=== PATIENT | female | born 1960 | race Caucasian/White ===

== ENCOUNTER 2016-11-15 18:42 | Emergency (ER) | payer SELFPAY ==
[~2016-11-15 18:42] MED LIST: ABILIFY2 PO; ASAB PO; ATARAX50B PO; IBU800 PO; LIOR10 PO; NEUR600 PO; PRILO PO; PROAIR HFA INH; PROZAC40 MG PO; REMERON45 MG PO; ZOCOR10 PO
[2016-11-15 19:18] LABS: BASOPHILS 0.3 %; BASOPHILS ABSOLUTE 0.03 10/3/uL (0.0-0.16); EOSINOPHILS 1.3 %; EOSINOPHILS ABSOLUTE 0.14 10/3/uL (0.0-0.53); HEMOGLOBIN 12.3 g/dL (12.0-16.0); IMMATURE GRANULOCYTES 0.3 %; IMMATURE GRANULOCYTES ABSOLUTE 0.03 10/3/uL (0.0-0.11); LYMPHOCYTES 11.2 %; LYMPHOCYTES ABSOLUTE 1.19 10/3/uL (0.67-4.30); MEAN CORPUS HGB CONC 34.3 g/dL (32.0-36.0); MEAN CORPUSCULAR HEMOGLOB 29.2 pg (26.0-34.0); MEAN PLATELET VOLUME 9.7 fL (9.2-13.0); MONOCYTES 7.5 %; NEUTROPHILS 79.4 %; NEUTROPHILS ABSOLUTE 8.46 10/3/uL (2.02-8.40); PLATELET COUNT 281 10/3/uL (150-400); RED CELL COUNT 4.21 10/6/uL (4.0-5.6)
[2016-11-15 19:20] LABS: HEMATOCRIT 35.9 % (36.0-48.0); MANUAL DIFF NO %; MEAN CORPUSCULAR VOLUME 85.3 fL (80-100); WHITE BLOOD CELLS 10.7 10/3/uL (4.5-10.5)
[2016-11-15 19:36] LABS: A/G RATIO 0.8 (0.7-1.9); ALBUMIN 3.6 G/DL (3.5-5.0); ALKALINE PHOSPHATASE 121 U/L (45-117); BUN (BLOOD UREA NITROGEN) 5 MG/DL (6-23); CHLORIDE, SERUM 102 MMOL/L (96-112); CO2 (CARBON DIOXIDE) 26 MMOL/L (24-34); CREATININE 0.79 MG/DL (0.55-1.02); GFR AFRICAN AMERICAN 98 ML/MIN (>=60); GFR NON AFRICAN AMERICAN 84 ML/MIN (>=60); GLOBULIN 4.3 G/DL (2.5-4.1); GLUCOSE, SERUM 100 MG/DL (60-99); POTASSIUM, SERUM 3.3 MMOL/L (3.5-5.3); SGOT(AST) 20 U/L (5-40); SGPT(ALT) 20 U/L (5-65); SODIUM, SERUM 136 MMOL/L (135-148); TOTAL BILIRUBIN 0.4 MG/DL (0-1.2); TOTAL PROTEIN 7.9 G/DL (6.0-8.5)
== END 2016-11-15 22:30 | disposition home or self-care (01) ==
LOC: ER 18:42
PROVIDERS: Emergency Medicine
DX: J20.9 Acute bronchitis, unspecified (principal); J42 Unspecified chronic bronchitis; F17.200 Nicotine dependence, unspecified, uncomplicated; E87.6 Hypokalemia; K21.9 Gastro-esophageal reflux disease without esophagitis; J45.909 Unspecified asthma, uncomplicated; Z88.8 Allergy status to other drugs, medicaments and biological substances; Z79.82 Long term (current) use of aspirin; Z79.899 Other long term (current) drug therapy
CPT/HCPCS: 71020; 80053; 85025; 87040; 93005; 94640; 96372; 99285; J2930

== ENCOUNTER 2016-12-01 12:18 | Inpatient (IN) | payer OTHER ==
--- NOTE | ~2016-12-01 | DS ---
Discharge Summary [facility] [address] [place]. [address] NAME: SPRING TRACY : 62 STATUS : DIS IN PAT#: [id number] AGE: 56 ADM/REG DATE : 12/01/16 MR#: [id number] REPORT SERV DATE: 12/08/16 DICTATED BY: NANCY CROWLEY DATE: 12/07/16 REPORT STATUS : Draft TRANSCRIBED BY: ZOHRA DATE: 12/07/16 ADMISSION DATE: 12/01/2016 DISCHARGE DATE: 12/07/2016 DISCHARGE DIAGNOSES: 1. Acute hypoxic respiratory failure. 2. Chronic obstructive pulmonary disease exacerbation. 3. Bipolar disorder. 4. Major depression. DISCHARGE CONDITION: Stable. HISTORY OF PRESENT ILLNESS: For detailed HPI, please make reference to Dr. Sierra Corona's dictation on 12/01/2016. In brief, this is a 56-year-old female with medical history significant for tobacco abuse, early stage of COPD, bipolar disorder, depression, who presented to the hospital with complaints of worsening shortness of breath, cough productive of yellowish sputum, and fevers. In the ER, the patient was noted to have blood pressure of 108/71, oxygen saturation on 4 L of oxygen 94%. PHYSICAL EXAMINATION: Noted for expiratory wheezes. LABORATORY DATA: WBC count of 10.7. CHEST X-RAY: Bibasilar infiltrates. An assessment of pneumonia was made. The patient was admitted to the Hospitalist Service for further management. HOSPITAL COURSE: 1. Acute hypoxic respiratory failure. During the course of this admission, the patient's oxygenation initially got worse requiring up to 6 L of oxygen to maintain saturation around 91%. During the course of this admission, the patient's oxygenation initially got worse. CTA of the chest was done, showed no evidence of PE. However, noted was bilateral pneumonia. The patient continued to receive IV broad-spectrum antibiotics. The patient's oxygenation requirement continued to improve with antibiotics treatment. The patient's white blood cell initially trended up to 14,000, trended back down to normal prior to discharge. The patient's shortness of breath and cough significantly improved. The patient continued to require 2 L of oxygen to maintain saturation above 92%. The patient had home oxygen evaluation prior to discharge and qualified for home O2. The patient was advised to continue home O2 at 2 L and follow up with primary care physician as an outpatient. 2. Acute COPD exacerbation. On presentation to the hospital, the patient was noted to have significant inspiratory and expiratory wheezes. Albuterol nebulizer was added to patient's medication. The patient's shortness of breath slightly improved. IV steroid was also added to patient's medication. Following aggressive treatment with broad- spectrum antibiotics in addition to the steroids and DuoNeb, the patient's wheezing began to improve, and at the time of discharge, had completely resolved. The patient Discharge Summary [facility] [address] [place]. [address] NAME: SPRING TRACY : 62 STATUS : DIS IN PAT#: [id number] AGE: 56 ADM/REG DATE : 12/01/16 MR#: [id number] REPORT SERV DATE: 12/08/16 DICTATED BY: NANCY CROWLEY DATE: 12/07/16 REPORT STATUS : Draft TRANSCRIBED BY: ZOHRA DATE: 12/07/16 was advised to abstain from tobacco use. Follow up with primary care physician as well as Pulmonology as outpatient. 3. Bipolar disorder. The patient has extensive history of bipolar disorder, was on multiple psychotropic medication prior to admission. Psychiatry was consulted. Recommended Abilify 5 mg and added Klonopin at bedtime. The patient's mood significantly improved during the course of this admission. At the time of discharge, the patient was advised to follow up with [facility] in [place]. The patient was advised to discontinue Prozac and hydroxyzine per Psychiatry recommendation. DISCHARGE MEDICATIONS: 1. Abilify 5 mg p.o. daily. 2. Gabapentin 600 mg p.o. t.i.d. 3. Mirtazapine 45 mg p.o. at bedtime. 4. Nicotine patch 21 mg daily. 5. Spiriva one inhaler daily. 6. Symbicort one inhaler daily. 7. Albuterol one puff every 6 hours p.r.n. DISCHARGE DISPOSITION: Home. DISCHARGE FOLLOWUP: 1. Follow up with primary care physician. 2. Follow up with Pulmonology. 3. Follow up at the psychiatric clinic in [place]. Greater than 35 minutes was used to prepare this patient's discharge, reconcile medication, and advise the patient on discharge plans and followup. IOO/MODL Nancy Crowley MD / [id number] CC: MD Sierra Lopez M.D.
--- NOTE | ~2016-12-01 | CN ---
Consultation Report [facility] [address] [place]. [address] NAME: SPRING TRACY : 62 STATUS : ADM IN PAT#: [id number] AGE: 56 ADM/REG DATE : 12/01/16 MR#: [id number] REPORT SERV DATE: 12/03/16 DICTATED BY: MICHELET DOBSON DATE: 12/03/16 REPORT STATUS : Draft TRANSCRIBED BY: MODL DATE: 12/03/16 PSYCHIATRIC CONSULTATION DATE OF CONSULTATION: 12/03/2016 I reviewed this patient's medical record. I discussed the patient's status with her nurse. HISTORY OF PRESENT ILLNESS: She was admitted with fever, cough, and shortness of breath, associated with an exacerbation of COPD and bilateral lower lobe pneumonia. She is now on prednisone with a considerable increase in her anxiety. PAST PSYCHIATRIC HISTORY: She has a history spanning about 30 years or more of depressive episodes and episodes of heightened impulsivity, lability, and self-destructive behaviors. Some years ago, she overdosed in a suicide attempt. That happened at about the time of her divorce. She had one admission to [facility], which was a psychiatric hospital situated in [place]. She is now followed by a psychiatrist at [facility] in [place]. HOME MEDICATIONS: List included Abilify 2 mg daily, Prozac 80 mg daily, Neurontin 600 mg q.i.d., Remeron 45 mg q.h.s., BuSpar was added to this regimen yesterday. SOCIAL HISTORY: She has three children from her first marriage. She is now in a supportive second marriage. FAMILY HISTORY: Bipolar disorder in her mother and a sister. MENTAL STATUS: She was pleasant and cooperative in attitude. Her mood was quite anxious. Her affect was appropriate. Her thinking was logical. She had no delusions. She had no hallucinations. She was oriented x3. She appeared somewhat jittery and tremulous, so I had some concern for an element of serotonin syndrome. DIAGNOSIS: Bipolar disorder, not otherwise specified. RECOMMENDATIONS: 1. Discontinue BuSpar. 2. Discontinue Prozac. 3. Discontinue Atarax. 4. Add Klonopin 0.5 mg a.m. and 1 mg at h.s. 5. Increase Abilify to 5 mg daily. I will follow during this hospitalization. DK/MODL Consultation Report [facility] [address] [place] [address] NAME: SPRING TRACY : 62 STATUS : ADM IN PAT#: [id number] AGE: 56 ADM/REG DATE : 12/01/16 MR#: [id number] REPORT SERV DATE: 12/03/16 DICTATED BY: MICHELET DOBSON DATE: 12/03/16 REPORT STATUS : Draft TRANSCRIBED BY: MODL DATE: 12/03/16 Michelet Dobson M.D. / [id number] CC: Sierra Corona M.D. UNKNOWN
--- NOTE | ~2016-12-01 | HP ---
History And Physical [facility] [address] [place]. [address] NAME: SPRING NUÑEZ : 62 STATUS : ADM IN PAT#: [id number] AGE: 56 ADM/REG DATE : 12/01/16 MR#: [id number] REPORT SERV DATE: 12/01/16 DICTATED BY: VALERIANO DOS SANTOS DATE: 12/01/16 REPORT STATUS : Draft TRANSCRIBED BY: MODJacob DATE: 12/01/16 DATE OF ADMISSION: 12/01/2016 HISTORY OF PRESENT ILLNESS: Ms. Nuñez is a 56-year-old female patient with a history of generalized anxiety disorder, bipolar disorder and depression, and a history of early stages of COPD, not on home oxygen, comes in with fever, cough with minimal productive sputum and increasing shortness of breath for the last few days. The patient states that all these symptoms began four or five days ago. All the symptoms have gradually been getting worse and this morning, it became impossible for her to breathe, and she could not even complete a sentence before getting short of breath and hence decided to come into the ER. At this time, the patient denies any chest pain. REVIEW OF SYSTEMS: Negative for any headaches, blurry vision, trouble swallowing, chest pain, other than pain from difficulty breathing according to the patient. She states that her chest wall hurts, but not like the chest pain she had in 07/2016. The patient does complain of some nausea, but there is no vomiting right now. The patient said that she did have an episode yesterday. The patient denies any diarrhea, dysuria, hematuria, blood in stool. The patient denies any swelling or pain in any of the major joints. Review of systems otherwise is negative. PAST MEDICAL HISTORY: Significant for COPD, for which the patient is not getting any treatment on a regular basis, however what is most significant is generalized anxiety disorder, depression and bipolar disorder, for which the patient is on multiple psychiatric medications. SOCIAL HISTORY: The patient states that, she quit smoking a few months ago. She was smoking a pack to less than a pack a day for a number of years. Now, she states that she is vaping however. The patient denies any significant alcohol use, denies any illegal drug use. She is . FAMILY HISTORY: Positive for COPD in father and sister. HOME MEDICATIONS: Include the following: The patient does report allergy to Darvocet and acetaminophen. The patient does take Prozac 40 mg tablets 80 mg once a day, Abilify 2 mg once a day, Remeron 45 mg p.o. at bedtime, Atarax 200 mg p.o. at bedtime, Neurontin 600 mg p.o. four times a day, and Prilosec 20 mg once a day. She understands that she is on big doses of some of these antipsychotic/psychiatric medications, but states she needs absolutely every one of them. PHYSICAL EXAMINATION: History And Physical [address] [place]. [address] NAME: SPRING NUÑEZ : 62 STATUS : ADM IN [facility]#: [id number] AGE: 56 ADM/REG DATE : 12/01/16 MR#: [id number] REPORT SERV DATE: 12/01/16 DICTATED BY: VALERIANO DOS SANTOS DATE: 12/01/16 REPORT STATUS : Draft TRANSCRIBED BY: ZOHRA DATE: 12/01/16 GENERAL: On examination, the patient is alert, oriented, and appears very anxious and tremulous. She attributes this to some of the breathing treatments that she has received, the steroids that she has received (the patient received IV Solu-Medrol) and also to the anxiety and bipolar disorder that she has. Anyway, she is sitting there very anxious and tremulous. She is able to complete a sentence, but gets short of breath after she finishes the sentence. VITAL SIGNS: At this time, show a blood pressure of 108/71, temperature the patient is afebrile currently, pulse is 88 per minute, O2 saturations 96% on 2 L of oxygen per nasal cannula. HEENT: Otherwise, is unremarkable. There is no facial droop. NECK: There is no JVD, no thyromegaly. No lymphadenopathy except for a slightly enlarged right lobe of the thyroid gland, which appears like a colloidal cyst. CARDIOVASCULAR SYSTEM: S1, S2 appreciated. Sinus rhythm. No murmurs, rubs, or gallops noted. RESPIRATORY SYSTEM: Bibasilar crackles noted, however respiratory effort is good. ABDOMEN: Soft, nontender, nondistended. Bowel sounds appreciated. No organomegaly noted. No masses noted. EXTREMITIES: There is no pedal edema. Pedal pulses are well felt. NEUROLOGICAL: Normal with no deficits. PSYCHIATRIC: The patient appears very anxious and has a chronic history of bipolar disorder, depression, and severe anxiety. MUSCULOSKELETAL: Normal with no swelling or warmth in any of the major joints at this time. LABORATORY DATA: Blood count shows a normal CBC, normal platelets, PT/INR normal. Electrolytes show sodium low to be at 129, potassium 3.3, BUN 4, creatinine 0.8. Troponin I is normal at less than 0.02. The patient also had ABGs that show pH of 7.4, pCO2 of 23, PO2 of 64, and O2 sats of 92.7% on room air. The patient also had blood cultures a few days ago that came back with no growth at four days. A chest x-ray done today however revealed that the patient does have minimal bibasilar infiltrates. ASSESSMENT: 1. My assessment on this patient is acute exacerbation of chronic obstructive pulmonary disease-for this, treat the patient supportively with oxygen, respiratory treatments with DuoNebs every 4 hours while awake, inhaled corticosteroids, stop the IV Solu- Medrol, and keep her on prednisone 20mg to 25 mg as tolerated once a day. 2. Bilateral basilar pneumonia-for this, treat the patient as community-acquired pneumonia and start her on IV Rocephin and Zithromax. 3. Severe anxiety, bipolar disorder, and generalized depression-for this, resume her home medications as she insists that she has to have every one of them exactly the way they are dosed. So, we will do that. Hence, we will provide symptomatic and supportive care for this patient in addition to the above and follow the patient. If the nodule on the right side of the neck which really appears to be like a colloidal cyst/thyroid History And Physical [address] [place]. [address] NAME: SPRING NUÑEZ : 62 STATUS : ADM IN PAT#: [id number] AGE: 56 ADM/REG DATE : 12/01/16 MR#: [id number] REPORT SERV DATE: 12/01/16 DICTATED BY: VALERIANO DOS SANTOS DATE: 12/01/16 REPORT STATUS : Draft TRANSCRIBED BY: MODL DATE: 12/01/16 nodule to me most likely benign, we may want to get that biopsied under ultrasound guided fine needle aspiration biopsy, if it changes in appearance in the next few days. We will follow the patient. SAMUEL/ZOHRA Valeriano Dos Santos M.D. / [id number] CC: Valeriano Dos Santos M.D.
[2016-12-01 11:45] LABS: BASOPHILS 0.3 %; BASOPHILS ABSOLUTE 0.03 10/3/uL (0.0-0.16); EOSINOPHILS 1.7 %; EOSINOPHILS ABSOLUTE 0.18 10/3/uL (0.0-0.53); ER CBC TAT 0 Hrs 00 Mins; HEMATOCRIT 37.9 % (36.0-48.0); HEMOGLOBIN 13.7 g/dL (12.0-16.0); IMMATURE GRANULOCYTES 0.3 %; IMMATURE GRANULOCYTES ABSOLUTE 0.03 10/3/uL (0.0-0.11); LYMPHOCYTES 7.2 %; LYMPHOCYTES ABSOLUTE 0.74 10/3/uL (0.67-4.30); MANUAL DIFF NO %; MEAN CORPUS HGB CONC 36.1 g/dL (32.0-36.0); MEAN CORPUSCULAR HEMOGLOB 30.4 pg (26.0-34.0); MEAN PLATELET VOLUME 9.6 fL (9.2-13.0); MONOCYTES 5.5 %; MONOCYTES ABSOLUTE 0.57 10/3/uL (0.21-1.20); NEUTROPHILS ABSOLUTE 8.78 10/3/uL (2.02-8.40); PLATELET COUNT 281 10/3/uL (150-400); RED CELL COUNT 4.51 10/6/uL (4.0-5.6); WHITE BLOOD CELLS 10.3 10/3/uL (4.5-10.5)
[2016-12-01 11:52] LABS: INTERNATIONAL NORMAL RATI 1.1 UNITS (-); PARTIAL THROMBO TIME 27.9 SEC (22.5-37.2); PROTIME (NOT ORD) 14.3 SEC (12.0-14.5)
[2016-12-01 12:00] LABS: BUN (BLOOD UREA NITROGEN) 4 MG/DL (6-23); CALCIUM, SERUM 9.1 MG/DL (8.5-10.4); CHEST PAIN PROFILE TAT 0 Hrs 20 Mins; CHLORIDE, SERUM 96 MMOL/L (96-112); CO2 (CARBON DIOXIDE) 22 MMOL/L (24-34); GFR AFRICAN AMERICAN 96 ML/MIN (>=60); GFR NON AFRICAN AMERICAN 83 ML/MIN (>=60); GLUCOSE, SERUM 119 MG/DL (60-99); POTASSIUM, SERUM 3.3 MMOL/L (3.5-5.3); TROPONIN I <0.02 NG/ML (<0.05)
[2016-12-01 12:03] LABS: SODIUM, SERUM 129 MMOL/L (135-148)
[2016-12-01 12:52] LABS: ALLENS TEST Pos; CARBOXYHEMOGLOBIN 1.4 % (0-3); HCO3 (ACTUAL BICARBONATE) 16.7 MEQ/L (23-27); HEMOBLOGIN CONTENT 12.8 G/DL (12-16); INSTRUMENT SERIAL # 8087; METHEMOGLOBIN 0.2 % (0-3); O2 CONTENT 16.4 VOL% (18-24); PCO2 (CO2 TENSION) 23 MMHG (35-45); PO2 (O2 TENSION) 64 MMHG (79-93); SAMPLE Arterial; pH 7.48 (7.37-7.43)
[2016-12-01 15:14] LABS: LACTATE 1.2 MMOL/L (0.3-2.4)
[2016-12-02 08:36] LABS: BASOPHILS 0.1 %; BASOPHILS ABSOLUTE 0.01 10/3/uL (0.0-0.16); EOSINOPHILS 0.1 %; EOSINOPHILS ABSOLUTE 0.02 10/3/uL (0.0-0.53); HEMOGLOBIN 11.6 g/dL (12.0-16.0); IMMATURE GRANULOCYTES 0.3 %; IMMATURE GRANULOCYTES ABSOLUTE 0.06 10/3/uL (0.0-0.11); LYMPHOCYTES 5.6 %; MEAN CORPUS HGB CONC 35.4 g/dL (32.0-36.0); MEAN CORPUSCULAR HEMOGLOB 30.1 pg (26.0-34.0); MEAN PLATELET VOLUME 9.5 fL (9.2-13.0); MONOCYTES 5.2 %; MONOCYTES ABSOLUTE 0.93 10/3/uL (0.21-1.20); NEUTROPHILS 88.7 %; NEUTROPHILS ABSOLUTE 15.98 10/3/uL (2.02-8.40); PLATELET COUNT 295 10/3/uL (150-400); RBC DISTRIBUTION WIDTH 14.6 % (12.0-16.0); RED CELL COUNT 3.86 10/6/uL (4.0-5.6)
[2016-12-02 08:38] LABS: HEMATOCRIT 32.8 % (36.0-48.0); MANUAL DIFF NO %
[2016-12-02 08:47] LABS: CALCIUM, SERUM 8.8 MG/DL (8.5-10.4); CHLORIDE, SERUM 107 MMOL/L (96-112); CO2 (CARBON DIOXIDE) 22 MMOL/L (24-34); CREATININE 0.75 MG/DL (0.55-1.02); GFR AFRICAN AMERICAN 104 ML/MIN (>=60); GFR NON AFRICAN AMERICAN 90 ML/MIN (>=60); GLUCOSE, SERUM 126 MG/DL (60-99); POTASSIUM, SERUM 3.9 MMOL/L (3.5-5.3)
[2016-12-02 08:48] LABS: BUN (BLOOD UREA NITROGEN) 9 MG/DL (6-23); SODIUM, SERUM 140 MMOL/L (135-148)
[2016-12-02 10:15] LABS: ASCORBIC ACID (UR NOT ORDER) NEG (NEG); BILIRUBIN, URINE NEGATIVE (NEG); KETONE, URINE NEGATIVE (NEG); LEUKOCYTE ESTERASE(NOT OR NEG (NEG); WBC (NOT ORDERED) (RFLEX) < 1 (0-5)
[2016-12-03 04:37] LABS: BASOPHILS 0.1 %; BASOPHILS ABSOLUTE 0.01 10/3/uL (0.0-0.16); EOSINOPHILS 0.4 %; EOSINOPHILS ABSOLUTE 0.05 10/3/uL (0.0-0.53); HEMATOCRIT 29.4 % (36.0-48.0); HEMOGLOBIN 10.4 g/dL (12.0-16.0); IMMATURE GRANULOCYTES 0.3 %; IMMATURE GRANULOCYTES ABSOLUTE 0.03 10/3/uL (0.0-0.11); LYMPHOCYTES ABSOLUTE 1.06 10/3/uL (0.67-4.30); MEAN CORPUS HGB CONC 35.4 g/dL (32.0-36.0); MEAN CORPUSCULAR HEMOGLOB 29.5 pg (26.0-34.0); MEAN CORPUSCULAR VOLUME 83.5 fL (80-100); MEAN PLATELET VOLUME 9.4 fL (9.2-13.0); MONOCYTES 5.9 %; MONOCYTES ABSOLUTE 0.69 10/3/uL (0.21-1.20); NEUTROPHILS 84.3 %; PLATELET COUNT 296 10/3/uL (150-400); RED CELL COUNT 3.52 10/6/uL (4.0-5.6); WHITE BLOOD CELLS 11.7 10/3/uL (4.5-10.5)
[2016-12-03 04:38] LABS: MANUAL DIFF NO %
[2016-12-03 04:52] LABS: BUN (BLOOD UREA NITROGEN) 8 MG/DL (6-23); CHLORIDE, SERUM 107 MMOL/L (96-112); CO2 (CARBON DIOXIDE) 23 MMOL/L (24-34); CREATININE 0.86 MG/DL (0.55-1.02); GFR AFRICAN AMERICAN 88 ML/MIN (>=60); GFR NON AFRICAN AMERICAN 76 ML/MIN (>=60); POTASSIUM, SERUM 4.2 MMOL/L (3.5-5.3); SODIUM, SERUM 140 MMOL/L (135-148)
[2016-12-03 04:54] LABS: GLUCOSE, SERUM 94 MG/DL (60-99)
[2016-12-04 04:31] LABS: BASOPHILS 0.1 %; BASOPHILS ABSOLUTE 0.01 10/3/uL (0.0-0.16); EOSINOPHILS ABSOLUTE 0.11 10/3/uL (0.0-0.53); HEMATOCRIT 30.8 % (36.0-48.0); HEMOGLOBIN 10.6 g/dL (12.0-16.0); IMMATURE GRANULOCYTES 0.3 %; IMMATURE GRANULOCYTES ABSOLUTE 0.03 10/3/uL (0.0-0.11); LYMPHOCYTES 9.6 %; LYMPHOCYTES ABSOLUTE 1.06 10/3/uL (0.67-4.30); MANUAL DIFF NO %; MEAN CORPUS HGB CONC 34.4 g/dL (32.0-36.0); MEAN CORPUSCULAR HEMOGLOB 29.5 pg (26.0-34.0); MEAN CORPUSCULAR VOLUME 85.8 fL (80-100); MEAN PLATELET VOLUME 9.2 fL (9.2-13.0); MONOCYTES 5.8 %; MONOCYTES ABSOLUTE 0.64 10/3/uL (0.21-1.20); NEUTROPHILS 83.2 %; NEUTROPHILS ABSOLUTE 9.22 10/3/uL (2.02-8.40); PLATELET COUNT 303 10/3/uL (150-400); RBC DISTRIBUTION WIDTH 14.9 % (12.0-16.0); RED CELL COUNT 3.59 10/6/uL (4.0-5.6); WHITE BLOOD CELLS 11.1 10/3/uL (4.5-10.5)
[2016-12-04 04:37] LABS: BE (BASE EXCESS) -0.1 MEQ/L (0 +/- 2.5); CARBOXYHEMOGLOBIN 0.3 % (0-3); DEVICE NC; HCO3 (ACTUAL BICARBONATE) 23.5 MEQ/L (23-27); HEMOBLOGIN CONTENT 11.1 G/DL (12-16); INSTRUMENT SERIAL # 35151; METHEMOGLOBIN 0.7 % (0-3); O2 CONTENT 14.1 VOL% (18-24); PCO2 (CO2 TENSION) 34 MMHG (35-45); PO2 (O2 TENSION) 61 MMHG (79-93); SAMPLE Arterial; pH 7.45 (7.37-7.43)
[2016-12-04 04:42] LABS: BUN (BLOOD UREA NITROGEN) 10 MG/DL (6-23); CALCIUM, SERUM 9.1 MG/DL (8.5-10.4); CHLORIDE, SERUM 104 MMOL/L (96-112); CO2 (CARBON DIOXIDE) 24 MMOL/L (24-34); CREATININE 0.77 MG/DL (0.55-1.02); GFR AFRICAN AMERICAN 101 ML/MIN (>=60); GFR NON AFRICAN AMERICAN 87 ML/MIN (>=60); GLUCOSE, SERUM 102 MG/DL (60-99); POTASSIUM, SERUM 3.7 MMOL/L (3.5-5.3); SODIUM, SERUM 139 MMOL/L (135-148)
[2016-12-04 13:00] LABS: BASOPHILS 0.1 %; BASOPHILS ABSOLUTE 0.01 10/3/uL (0.0-0.16); EOSINOPHILS 0.9 %; EOSINOPHILS ABSOLUTE 0.09 10/3/uL (0.0-0.53); HEMATOCRIT 32.5 % (36.0-48.0); HEMOGLOBIN 11.1 g/dL (12.0-16.0); IMMATURE GRANULOCYTES 0.3 %; IMMATURE GRANULOCYTES ABSOLUTE 0.03 10/3/uL (0.0-0.11); LYMPHOCYTES 6.2 %; LYMPHOCYTES ABSOLUTE 0.63 10/3/uL (0.67-4.30); MEAN CORPUS HGB CONC 34.2 g/dL (32.0-36.0); MEAN CORPUSCULAR HEMOGLOB 29.7 pg (26.0-34.0); MEAN CORPUSCULAR VOLUME 86.9 fL (80-100); MEAN PLATELET VOLUME 9.1 fL (9.2-13.0); MONOCYTES 3.7 %; MONOCYTES ABSOLUTE 0.38 10/3/uL (0.21-1.20); NEUTROPHILS 88.8 %; NEUTROPHILS ABSOLUTE 9.01 10/3/uL (2.02-8.40); PLATELET COUNT 313 10/3/uL (150-400); RBC DISTRIBUTION WIDTH 14.9 % (12.0-16.0); RED CELL COUNT 3.74 10/6/uL (4.0-5.6); WHITE BLOOD CELLS 10.2 10/3/uL (4.5-10.5)
[2016-12-04 13:01] LABS: MANUAL DIFF NO %
[2016-12-04 13:15] LABS: BUN (BLOOD UREA NITROGEN) 9 MG/DL (6-23); CALCIUM, SERUM 9.7 MG/DL (8.5-10.4); CHLORIDE, SERUM 98 MMOL/L (96-112); CO2 (CARBON DIOXIDE) 28 MMOL/L (24-34); GFR AFRICAN AMERICAN 96 ML/MIN (>=60); GFR NON AFRICAN AMERICAN 83 ML/MIN (>=60); PHOSPHORUS, SERUM 3.1 MG/DL (2.5-4.5); POTASSIUM, SERUM 3.6 MMOL/L (3.5-5.3); SODIUM, SERUM 134 MMOL/L (135-148)
[2016-12-04 13:16] LABS: GLUCOSE, SERUM 125 MG/DL (60-99)
[2016-12-05 15:47] LABS: ALLENS TEST Pos; CARBOXYHEMOGLOBIN 0.6 % (0-3); DEVICE HFNC; HCO3 (ACTUAL BICARBONATE) 24.2 MEQ/L (23-27); HEMOBLOGIN CONTENT 12.4 G/DL (12-16); INSTRUMENT SERIAL # 8083; METHEMOGLOBIN 0.3 % (0-3); O2 CONTENT 16.1 VOL% (18-24); PCO2 (CO2 TENSION) 34 MMHG (35-45); PO2 (O2 TENSION) 61 MMHG (79-93); SAMPLE Arterial; pH 7.47 (7.37-7.43)
[2016-12-06 05:47] LABS: HEMATOCRIT 30.3 % (36.0-48.0); HEMOGLOBIN 10.4 g/dL (12.0-16.0); MANUAL DIFF YES %; MEAN CORPUS HGB CONC 34.3 g/dL (32.0-36.0); MEAN CORPUSCULAR HEMOGLOB 29.2 pg (26.0-34.0); MEAN CORPUSCULAR VOLUME 85.1 fL (80-100); MEAN PLATELET VOLUME 8.8 fL (9.2-13.0); PLATELET COUNT 362 10/3/uL (150-400); RED CELL COUNT 3.56 10/6/uL (4.0-5.6); WHITE BLOOD CELLS 11.7 10/3/uL (4.5-10.5)
[2016-12-06 05:59] LABS: CALCIUM, SERUM 9.4 MG/DL (8.5-10.4); CHLORIDE, SERUM 102 MMOL/L (96-112); CO2 (CARBON DIOXIDE) 24 MMOL/L (24-34); CREATININE 0.86 MG/DL (0.55-1.02); GFR AFRICAN AMERICAN 88 ML/MIN (>=60); GFR NON AFRICAN AMERICAN 76 ML/MIN (>=60); PHOSPHORUS, SERUM 3.1 MG/DL (2.5-4.5); SODIUM, SERUM 136 MMOL/L (135-148)
[2016-12-06 06:02] LABS: ALBUMIN 2.3 G/DL (3.5-5.0); BUN (BLOOD UREA NITROGEN) 14 MG/DL (6-23); GLUCOSE, SERUM 93 MG/DL (60-99)
[2016-12-06 06:29] LABS: BAND NEUTROPHILS 1 %; EOSINOPHILS 2 %; EOSINOPHILS ABSOLUTE (CALC) 0.23 10/3/uL (0.0-0.53); LYMPHOCYTES 14 %; LYMPHOCYTES ABSOLUTE (CALC) 1.64 10/3/uL (0.67-4.30); MONOCYTES 6 %; NEUTROPHILS ABSOLUTE (CALC) 9.13 10/3/uL (2.02-8.40); PLATELET ESTIMATE ADQ (ADEQUATE); SEGMENTED NEUTROPHIL (0) 77 %; TOTAL NUCLEATED CELLS 100
[2016-12-06 06:30] LABS: RBC MORPHOLOGY NORM (NORMAL)
[2016-12-07 06:21] LABS: BASOPHILS 0 %; EOSINOPHILS 2.9 %; EOSINOPHILS ABSOLUTE 0.24 10/3/uL (0.0-0.53); HEMATOCRIT 30.6 % (36.0-48.0); HEMOGLOBIN 10.4 g/dL (12.0-16.0); IMMATURE GRANULOCYTES 1.3 %; IMMATURE GRANULOCYTES ABSOLUTE 0.11 10/3/uL (0.0-0.11); LYMPHOCYTES 18.5 %; LYMPHOCYTES ABSOLUTE 1.56 10/3/uL (0.67-4.30); MEAN CORPUSCULAR HEMOGLOB 29.1 pg (26.0-34.0); MEAN CORPUSCULAR VOLUME 85.5 fL (80-100); MEAN PLATELET VOLUME 8.7 fL (9.2-13.0); MONOCYTES ABSOLUTE 0.59 10/3/uL (0.21-1.20); NEUTROPHILS 70.3 %; NEUTROPHILS ABSOLUTE 5.92 10/3/uL (2.02-8.40); PLATELET COUNT 373 10/3/uL (150-400); RBC DISTRIBUTION WIDTH 14.9 % (12.0-16.0); RED CELL COUNT 3.58 10/6/uL (4.0-5.6); WHITE BLOOD CELLS 8.4 10/3/uL (4.5-10.5)
[2016-12-07 06:23] LABS: MANUAL DIFF NO %
[2016-12-07 06:35] LABS: ALBUMIN 2.3 G/DL (3.5-5.0); BUN (BLOOD UREA NITROGEN) 12 MG/DL (6-23); CALCIUM, SERUM 9.4 MG/DL (8.5-10.4); CHLORIDE, SERUM 105 MMOL/L (96-112); CO2 (CARBON DIOXIDE) 28 MMOL/L (24-34); CREATININE 0.65 MG/DL (0.55-1.02); GFR AFRICAN AMERICAN 116 ML/MIN (>=60); GFR NON AFRICAN AMERICAN 100 ML/MIN (>=60); GLUCOSE, SERUM 90 MG/DL (60-99); POTASSIUM, SERUM 3.8 MMOL/L (3.5-5.3); SODIUM, SERUM 142 MMOL/L (135-148)
[2016-12-07 06:37] LABS: PHOSPHORUS, SERUM 4.4 MG/DL (2.5-4.5)
[2016-12-07] MEDS ORDERED: ABILIFY5 PO (11:21)
[2016-12-07] MEDS ORDERED: MULTIPLE VIT PO (11:24)
[2016-12-07] MEDS ORDERED: HABIT21 TOP (11:25)
[2016-12-07] MEDS ORDERED: KLONO1 PO (11:26)
[2016-12-07] MEDS ORDERED: SPIRIVA INH (11:26)
[2016-12-07] MEDS ORDERED: STERAPDS12 (11:27)
[2016-12-07] MEDS ORDERED: ALBUTEROL5 INH (11:31)
[2016-12-07] MEDS ORDERED: SYMBICORT 160/41 INH INH (11:32)
[2016-12-07] MEDS ORDERED: PCET PO (11:35)
[2016-12-07] MEDS ORDERED: OMNICEF300 PO (11:36)
== END 2016-12-07 16:36 | disposition home or self-care (01) | DRG 189 ==
LOC: ER 12:18 → CDU1 13:16 → 6NO 14:04
PROVIDERS: Hospitalist; Nurse Practitioner
DX: J96.21 Acute and chronic respiratory failure with hypoxia (principal); J18.9 Pneumonia, unspecified organism; J44.0 Chronic obstructive pulmonary disease with (acute) lower respiratory infection; J44.1 Chronic obstructive pulmonary disease with (acute) exacerbation; F41.1 Generalized anxiety disorder; F31.9 Bipolar disorder, unspecified; T38.0X5A Adverse effect of glucocorticoids and synthetic analogues, initial encounter; Z87.891 Personal history of nicotine dependence; Z88.5 Allergy status to narcotic agent; Z88.6 Allergy status to analgesic agent; Z81.8 Family history of other mental and behavioral disorders
CPT/HCPCS: 36600; 71010; 71020; 71275; 80048; 80069; 81001; 82805; 83605; 83735; 83880; 84100; 84484; 85025; 85610; 85730; 87040; 93005; 94640; 96374; 99285; A9270-GY; J0456; J1170; J2930; Q9967